=== PATIENT | male | born 1950 | race Caucasian/White ===

== ENCOUNTER → 2024-01-03 | Outpatient (CLI) | payer MEDICARE | END | disposition home or self-care (01) | LOC: RESCLI 15:26 | PROVIDERS: ATTEND Internal Medicine | DX: E11.40 Type 2 diabetes mellitus with diabetic neuropathy, unspecified (principal); I10 Essential (primary) hypertension; E78.5 Hyperlipidemia, unspecified; E55.9 Vitamin D deficiency, unspecified; Z87.891 Personal history of nicotine dependence; Z98.890 Other specified postprocedural states; Z79.82 Long term (current) use of aspirin; Z88.8 Allergy status to other drugs, medicaments and biological substances; Z79.899 Other long term (current) drug therapy ==

== ENCOUNTER 2024-02-09 10:35 | Emergency (ER) | payer MEDICARE ==
[~2024-02-09] VITALS: Ht 167.6 cm; Wt 81.6 kg
[2024-02-09] MEDS ORDERED: AMLODIPINE BESYL5 MG PO (11:02)
[2024-02-09] MEDS ORDERED: METFORMIN HYD1000 MG PO (11:02)
[2024-02-09] MEDS ORDERED: NEURONTIN300 MG PO (11:03)
[2024-02-09] MEDS ORDERED: ATORVASTATIN CA20 M1 PO (11:03)
[2024-02-09] MEDS ORDERED: TOUJEO SOL300 UNIT/1 SQ (11:03)
[2024-02-09] MEDS ORDERED: TRADJENTA5 M1 PO (11:03)
== END 2024-02-09 12:58 | disposition home or self-care (01) ==
LOC: ED 10:35
DX: S20.211A Contusion of right front wall of thorax, initial encounter (principal); Z79.899 Other long term (current) drug therapy; Z79.4 Long term (current) use of insulin; W18.09XA Striking against other object with subsequent fall, initial encounter; Y93.89 Activity, other specified; Y92.89 Other specified places as the place of occurrence of the external cause; Y99.8 Other external cause status